=== PATIENT | male | born 1965 | race Caucasian/White ===

== ENCOUNTER 2018-08-09 23:19 | Emergency (ER) | payer OTHER ==
[~2018-08-09] VITALS: Ht 200.7 cm; Wt 158.8 kg
[2018-08-09 23:19] VITALS: BP_SYST 154
--- NOTE | 2018-08-09 23:19 | NUR ---
Pt placed to ER bed 05. 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 Pt denies N/V/D, but states that he has loose stools. Pt states that he had an episode of abdominal pain this AM, then resolved. Pain constant and sharp.
--- NOTE | 2018-08-09 23:41 | NUR ---
Dr. Caba at bedside.
[2018-08-09] MEDS ORDERED: NACL 0.9% 1,000 ML IV ONE (23:43)
[2018-08-09] MEDS ORDERED: KETOROLAC TROMETHAMINE 30 MG VIAL IVP ONE (23:45)
[2018-08-09] MEDS ORDERED: ASPIRIN 81 MG TAB.CHEW PO ONE (23:45)
--- NOTE | 2018-08-09 23:45 | NUR ---
# 20 gauge angiocath placed to RAC. Use of asceptic technique. Opsite placed over site. Blood return noted. Blood for lab drawn from site. Flushed with 10 cc of normal saline. No evidence of infiltration noted. Patient tolerated well.
[2018-08-10 00:23] LABS: ANION GAP 9 (5-15); CALCIUM 9.1 mg/dL (8.4-11.0); CHLORIDE 102 mmol/L (98-107); CREATININE 1.11 mg/dL (0.55-1.30); GLUCOSE 165 mg/dL (70-99); POTASSIUM 3.5 mmol/L (3.5-5.1); SODIUM SERUM 139 mmol/L (136-145); UREA NITROGEN, BLOOD 19 mg/dL (8-21)
--- NOTE | 2018-08-10 00:24 | NUR ---
Pt to CT via stretcher.
[2018-08-10 00:32] LABS: BASOPHILS # (AUTO) 0.1 K/uL (0.0-0.2); BASOPHILS % (AUTO) 0.9 % (0.0-2.0); EOSINOPHILS # (AUTO) 0.2 K/uL (0.0-0.4); EOSINOPHILS % (AUTO) 3.9 % (0.0-4.0); HEMATOCRIT 43.8 % (36-54); HEMOGLOBIN 14.2 g/dL (14.0-18.0); LYMPHOCYTES # (AUTO) 0.7 K/uL (1.0-5.5); LYMPHOCYTES % (AUTO) 12.4 % (20.5-51.5); MEAN CORPUSCULAR HEMOGLOBIN 27 pg (27-31); MEAN CORPUSCULAR HGB CONC 33 % (32-36); MEAN CORPUSCULAR VOLUME 84 fL (79.0-98.0); MONOCYTES # (AUTO) 0.7 K/uL (0.0-1.0); MONOCYTES % (AUTO) 12.8 % (1.7-9.3); NEUTROPHILS # (AUTO) 4.1 K/uL (1.8-7.7); RED BLOOD CELL COUNT(AUTO) 5.21 MIL/uL (4.2-6.2); RED CELL DISTRIBUTION WIDTH 12.9 % (9.0-15.0); WHITE BLOOD COUNT (AUTO) 5.8 K/uL (4.8-10.8)
[2018-08-10 00:33] LABS: ALANINE AMINOTRANSFERASE 38 U/L (12-78); ALBUMIN 3.7 g/dL (3.4-4.8); ASPARTATE AMINOTRANSFERASE 30 U/L (10-37); TOTAL BILIRUBIN 0.4 mg/dL (0.0-1.0)
[2018-08-10 00:38] LABS: GFR AFRICAN AMERICAN 89 mL/min (>90)
--- NOTE | 2018-08-10 00:44 | NUR ---
Pt returns from CT. No needs verbalized at this time.
[2018-08-10 01:03] LABS: PLATELET COUNT (AUTO) 105 K/uL (130-430)
[2018-08-10] MEDS ORDERED: LEVOFLOXACIN 500 MG TABLET PO ONE (01:30)
--- NOTE | 2018-08-10 02:30 | NUR ---
No needs verbalized at this time.
[2018-08-10] MEDS ORDERED: traMADol HCL HCL 50 MG TABLET (ULTRAM) PO ONE (02:45)
[2018-08-10] MEDS ORDERED: traMADol HCL HCL 50 MG TABLET (ULTRAM) ONE (02:54)
[2018-08-10 03:15] VITALS: BP_SYST 140
--- NOTE | 2018-08-10 03:15 | NUR ---
Patient given written and verbal discharge instructions and verbalizes understanding. ER MD discussed with patient the results and treatment provided. Patient in stable condition. ID arm band removed. IV catheter removed intact and dressing applied, no active bleeding. Rx of Tramadol, Motrin, Cipro given. Patient educated on pain management and to follow up with PMD. Pain Scale 1/10. Opportunity for questions provided and answered. Medication side effect fact sheet provided.
== END 2018-08-10 03:15 | disposition home or self-care (01) ==
LOC: SED 23:19
DX: N20.1 Calculus of ureter (principal); I10 Essential (primary) hypertension; E03.9 Hypothyroidism, unspecified; M19.90 Unspecified osteoarthritis, unspecified site
CPT/HCPCS: 36415; 71045; 74176; 80053; 84484; 85025; 87040; 93005; 96374; 99284; J1885; J7030